=== PATIENT | female | born 1965 | race Caucasian/White ===

== ENCOUNTER 2017-09-15 19:27 | Emergency (ER) | payer OTHER ==
[2017-09-15 22:37] LABS: ALB/GLOB RATIO 1.3 (1.0-1.8); ALBUMIN 4.2 gm/dL (3.7-5.3); ALKALINE PHOSPHATASE 106 U/L (34-104); ANION GAP 6.4 (7.0-16.0); BILIRUBIN,TOTAL 0.3 mg/dL (0.3-1.0); BUN - UREA NITROGEN 7 mg/dL (7-25); CALCIUM SERUM 9.9 mg/dL (8.6-10.3); CARBON DIOXIDE 31.8 mEq/L (21.0-31.0); CHLORIDE 104 mEq/L (98-107); CREATININE - SERUM 0.7 mg/dL (0.6-1.2); GFR AFRICAN-AMERICAN > 60.0 ml/min (>90); GFR NON AFRICAN-AMERICAN > 60.0 ml/min; GLUCOSE 112 mg/dL (70-105); POTASSIUM SERUM 3.2 mEq/L (3.5-5.1); SGOT 23 U/L (13-39); SGPT/ALT 45 U/L (7-52); SODIUM SERUM 139 mEq/L (136-145); TOTAL PROTEIN,SERUM 7.5 gm/dL (6.0-8.3)
[2017-09-15 22:38] LABS: CHOLESTEROL 165 mg/dL (<200); HDL -HIGH DENSITY LIPOPROTEIN 62 mg/dL (23-92); TRIGLYCERIDES 119 mg/dL (<150)
[2017-09-15 22:49] LABS: % EOSINOPHILS 1.3 % (0.0-5.0); % LYMPHOCYTES 29.5 % (20.0-50.0); % MONOCYTES 11.2 % (2.0-10.0); EOSINOPHILE ABSOLUTE 0.2 Th/cmm (0.1-0.4); HEMATOCRIT 41.2 % (41.0-60); HEMOGLOBIN 13.8 gm/dL (12-16); LYMPHOCYTE ABSOLUTE 3.8 Th/cmm (1.5-3.0); MEAN CELL VOLUME 92.8 fl (81-100); MEAN CORPUSCULAR HGB CONC 33.4 pg (28.0-36.0); MEAN PLATELET VOLUME 7.9 fl; MONOCYTE ABSOLUTE 1.4 Th/cmm (0.3-1.0); NEUTROPHILE ABSOLUTE 7.5 Th/cmm (1.8-8.0); PLATELET COUNT 300 Th/cmm (150-400); RED BLOOD COUNT 4.44 Mil/cmm (3.80-5.10); RED CELL DISTRIBUTION WIDTH 14.1 % (11.5-20.0)
[2017-09-15 22:53] LABS: WHITE BLOOD COUNT 12.9 Th/cmm (4.8-10.8)
--- NOTE | 2017-09-15 23:31 | ER Physician Documentation ---
DATE OF SERVICE: Emergency Room evaluation and treatment and medical evaluation of this patient before the patient goes to psych unit to make sure that there is no medical condition present on this patient. The patient is a 52-year-old female patient who looks at least 15-17 years older than her stated age. She was seen in the Emergency Room. She is a full code. Body surface area at 1.97 per meter. ALLERGIES: Tylenol, hydrocodone, penicillin. Penicillin she took many years ago. This patient was sent by, I believe, Dr. Nicole and on 09/13/2017, I think somewhere around that time, they saw the patient. The patient is sent today to get a medical evaluation and treatment. The patient has a psychiatric problem. The patient has a chief complaint of acute loss of consciousness, syncope, weakness, right hip pain, COPD, hypertension, seizures, schizophrenia, hyperthyroidism, pneumonia, status post fall. HISTORY OF PRESENT ILLNESS: The patient says that she was hearing voices. Now, she is better and she does not hear voices. She asked me whether psychiatrist is going to give the medication. I answered that the patient will be seen by the psychiatrist and if he feels necessary for some medications that would be given to her. She has a Riley catheter. We will try and discontinue this after getting the urine routine examination and culture. The patient is getting a full liquid diet and the patient will be given a full regular diet. Code status is full. The patient is here on 09/16/2017. Informed consent was taken from Kerry Mena. The patient can walk on her own. The history was taken from the patient. The patient states that she knows she is at [facility]. She states she knows she has pneumonia. She has IV line, PICC line catheter in the right upper arm from where she gets antibiotics for her infection that she has, but she continues to smoke 1 pack of cigarettes a day. The patient is hearing voices and she is on many other medications, which will be listed later on as we proceeded along. REVIEW OF SYSTEMS: EYES: No history of double vision, blurring, blindness. Central nervous system: No history of TIA, stroke, encephalitis, meningitis. The patient has psychiatric problems, hearing voices. Medical seizure disorder, schizophrenia, history of syncope, weakness and seizure disorder. Endocrine begum, the patient has history of hypothyroidism. Lung begum, the patient has history of pneumonia. Constitutional begum, the patient has a history of fall. Lung begum, the patient has cough, COPD, emphysema, history of COPD by default. PHYSICAL EXAMINATION: The patient appears to be awake, alert, oriented. She knows she is at [facility]. She will be seen by me, medical test will be done and if anything is found to be negative the patient will be admitted to the psychiatric [facility]. General examination shows that the eyes are normal. ENT appears to be normal. General physical examination is otherwise benign and negative. No edema, no cyanosis, no petechia. No ecchymosis. Chest reveals bilateral few scattered rales and rhonchi audible. Abdomen soft, benign, and obese. Protuberant, benign and negative. Central nervous system is normal. The patient has a history of, I believe, some kind of surgery in the abdomen. I am not sure whether it is a hysterectomy or not. The patient's according to her has . Some of the family members who come and see her. Pulmonary begum, the patient has cough and pneumonia and COPD, but no history of any tumor, cancer, TB, AIDs, etc. Heart begum no history of any chest pain, no myocardial infarction, or rheumatic fever. No valvular heart disease, pericardial disease, etc. Bones and joints: Minor degenerative joint disease. Some injury over the base of the nose may be fracture in the past many years ago. Endocrine begum; the patient has no diabetes mellitus. No hypo or hyperthyroidism. GI: No diarrhea or constipation, vomiting. The patient has some urinary tract infection. Her urine looks nice and clean. We removed the Riley catheter and get the urine for culture and sensitivity letting the lab know that the patient was on antibiotic. Twelve lead review of systems was found to be all negative. CURRENT MEDICATIONS: The patient was on includes Dulcolax, alendronate, sucralfate, albuterol inhaler, mirtazapine 45 mg tablet, levothyroxine sodium 150 mcg tablet daily, escitalopram oxalate 20 mg tablet p.o. daily for anxiety, clonazepam 0.5 mg tablet 2 times a day, phenytoin extended tablet 100 mg tablet 3 times a day, oxcarbazepine 300 mg tablets half tablet twice a day, olanzapine 20 mg tablet p.o. daily at bedtime. The patient is getting monitor inhalation, etc. Inhalation service family member is following the patient. Contact family for home primary, number is not given. The patient's physician contact is Deepak Nicole whose number is [phone], fax number [phone]. Other patient's contact is relationship is Kerry Mena, Aaliyah Maya, Norma Downey. The patient is an HMO patient, SS number is written on the chart. Medical record number from the [facility] [place] [id number]. Race is white, not of origin. Language Divehi. Facesheet is from [facility], admit date 09/10/2017 to 09/12/2017. The patient notes of transfer and discharge to [facility] today as mentioned in the chart. The patient has PICC line in the right upper arm, Riley catheter. The patient will be monitored for. The patient's vital signs are within normal limits. No evidence of any fever, chills, rigors, etc. Vital signs were done by the nurse before she came. Other diagnosis by the doctors at the other hospital include: 1. Mild hypoxia. 2. Hypercapnic respiratory failure in the setting of likely COPD, improved with medical treatment. The patient got Fentanyl in the ambulance and 20 mg morphine by the Emergency Room doctor. The patient has ABG done with low pH repeated showed worsening until the patient received BiPAP. Pulmonary consultation was consulted. No need for intubation and continue with noninvasive ventilation when necessary and history of fall with hip pain. The patient had syncope and will be seen by psychologist. Diagnosis is seizure versus orthostatic hypotension, medication induced. EKG with sinus rhythm, no evidence of NM, no ischemic changes. Wash Driller was on the board. There is no item likely cardiac problem. She has a history of seizure disorder and the patient's neurologist on board. History of hypothyroidism, but TSH is within normal limits and the patient will be continued on home dose of levothyroxine. The patient is CAD, CVA. Angiogram negative. History of schizophrenia. The patient is stable. DVT prophylaxis on full anticoagulation. Actually DVT prophylaxis, it should be just 40 or 1 mg/kg or I should say just 40 or 60 mg maximum dose to be given. Lab workup was done in the Hospital showing most of the labs all found to be within normal limits. The patient is noe, glucose level, CBC level, hemoglobin level etc all were found to be within normal limits. The patient's white count was found to be within normal limits. There is no shift to the left. MRSA screen test was found to be positive. MRSA Staphylococcus aureus that is methicillin-resistant Staphylococcus aureus was isolated and this is the correct result. We repeated again, let us see whether it has gone from the system or not, will know it. The patient's examination of the lungs had bilateral scattered rales and rhonchi audible. The patient's heart sounds are normal. No third heart sound is audible. No evidence of any pericardial rub. Abdomen is obese, otherwise negative. Central nervous system is schizophrenia, psychosis, and history of seizure disorder. In conclusion, patient's final diagnoses is history of schizophrenia, urinary retention for which Riley catheter is inserted and will try and take the Riley catheter out and give a trial of urinary voiding. Muscle weakness, COPD and the patient has hypothyroidism, depression, unsteady gait, gastroesophageal reflux disease, GI problem with induced ulcer, mild, intubated daily. She has the capacity to understand and make decisions. The doctor there sent the patient to our hospital for further treatment of psychiatric The diagnosis is pneumonia, APAP, hydrocodone allergy and the vital signs done here to be exact include temperature 97.8, pulse of 80, respirations 18, blood pressure 136/82, oxygen saturation 96%. Allergy to penicillin, hydrocodone, and acetaminophen should be noted. Once we get the results of the labs, will decide what the patient is suitable for psych admission. JOB# [id number]
[2017-09-16] MEDS ORDERED: Potassium Chloride 20 mEq ER Tab PO ONE (07:17)
--- NOTE | 2017-09-16 08:14 | Diagnostic Imaging Report ---
Portable chest x-ray History: Pain Allowing for portable technique the heart size is normal. No focal pulmonary parenchymal processes. No hilar or mediastinal abnormalities. There is a scoliosis of the thoracolumbar spine convexity to the left. A right-sided vascular catheter is seen with the tip in the region of the superior vena cava. Surgical clips noted in the left upper abdomen. Impression: 1. No acute abnormalities
== END 2017-09-16 12:05 ==
LOC: ER 19:27
DX: F32.9 Major depressive disorder, single episode, unspecified (principal); J44.9 Chronic obstructive pulmonary disease, unspecified; E03.9 Hypothyroidism, unspecified; K21.9 Gastro-esophageal reflux disease without esophagitis; J18.9 Pneumonia, unspecified organism; R53.1 Weakness
CPT/HCPCS: 36415-UA; 71045-TC; 80053-TC; 80061-TC; 83605; 83735-TC; 83880-TC; 84443-TC; 84484-TC; 85025-TC; 93005